=== PATIENT | female | born 1965 | race Two or more races ===

== ENCOUNTER 2023-06-15 08:25 | Outpatient (CLI) | payer OTHER | END 2023-06-15 08:32 | disposition home or self-care (01) | LOC: MRI 08:25 | PROVIDERS: ATTEND General Practice | DX: S06.6X1D Traumatic subarachnoid hemorrhage with loss of consciousness of 30 minutes or less, subsequent encounter (principal); S06.330A Contusion and laceration of cerebrum, unspecified, without loss of consciousness, initial encounter | CPT/HCPCS: 70553 ==